=== PATIENT | male | born 1970 | race Caucasian/White ===

== ENCOUNTER 2020-11-25 21:51 | Emergency (ER) | payer OTHER ==
[2020-11-25 23:09] LABS: RED BLOOD COUNT 5.07 M/UL (4.20-5.50); WHITE BLOOD COUNT 15.9 K/UL (4.5-11.0)
[2020-11-25 23:21] LABS: BUN/CREATININE RATIO 16 (0-10)
[2020-11-26] MEDS ORDERED: HYDROXYZINE HCL25 MG PO (00:13)
[2020-11-26] MEDS ORDERED: LISINOPRIL20 MG PO (00:13)
[2020-11-26] MEDS ORDERED: IBUPROFEN800 MG PO (00:13)
[2020-11-26] MEDS ORDERED: CYMBALTA60 MG PO (00:13)
[2020-11-26] MEDS ORDERED: PRILOSEC10 M1 PO (00:13)
[2020-11-26] MEDS ORDERED: RISPERDAL3 MG PO (00:13)
[2020-11-26] MEDS ORDERED: LEXAPRO20 MG PO (00:13)
== END 2020-11-26 00:30 | disposition home or self-care (01) ==
LOC: ER1 21:51
PROVIDERS: Family Medicine
DX: R07.9 Chest pain, unspecified (principal); I10 Essential (primary) hypertension; F17.210 Nicotine dependence, cigarettes, uncomplicated
CPT/HCPCS: 71046; 80053; 82550; 82553; 83874; 84484; 85025; 85610; 93005; 96372; 99285; J1885; J2800